=== PATIENT | female | born 1985 | race Two or more races ===

== ENCOUNTER 2017-09-15 20:59 | Emergency (ER) | payer OTHER ==
[~2017-09-15] VITALS: Ht 152.4 cm; Wt 62.6 kg
[~2017-09-15 20:59] MED LIST: FIORICET 50-301 EACH PO; KETO10TA2 PO; METRONIDAZOLE500 MG PO; ORPH100T PO
[2017-09-15] MEDS ORDERED: VASOTEC10 MG (21:43)
== END 2017-09-15 23:11 | disposition home or self-care (01) ==
LOC: ER 20:59
DX: G44.209 Tension-type headache, unspecified, not intractable (principal)

== ENCOUNTER 2018-08-07 15:31 | Emergency (ER) | payer OTHER ==
[~2018-08-07] VITALS: Ht 152.4 cm; Wt 68.0 kg
[~2018-08-07 15:31] MED LIST changes: +VASOTEC10 MG
== END 2018-08-07 19:39 | disposition home or self-care (01) ==
LOC: ER 15:31
DX: R42 Dizziness and giddiness (principal)

== ENCOUNTER 2019-06-07 22:09 | Emergency (ER) | payer OTHER ==
[~2019-06-07] VITALS: Ht 152.4 cm; Wt 71.7 kg
[2019-06-07] MEDS ORDERED: COZAAR25 MG (22:24)
[2019-06-07] MEDS ORDERED: DOLOGEN CAPLET1 EACH PO (23:45)
[2019-06-07] MEDS ORDERED: OSEL75CA PO (23:45)
[2019-06-07] MEDS ORDERED: TUSNEL LIQUID178 ML PO (23:45)
== END 2019-06-07 23:58 | disposition home or self-care (01) ==
LOC: ER 22:09
DX: J11.1 Influenza due to unidentified influenza virus with other respiratory manifestations (principal)

== ENCOUNTER 2019-12-06 00:38 | Emergency (ER) | payer OTHER ==
[~2019-12-06] VITALS: Ht 152.4 cm; Wt 72.6 kg
[~2019-12-06 00:38] MED LIST changes: +COZAAR25 MG; +DOLOGEN CAPLET1 EACH PO; +OSEL75CA PO; +TUSNEL LIQUID178 ML PO
[2019-12-06] MEDS ORDERED: NORFLEX100MG PO (03:04)
[2019-12-06] MEDS ORDERED: KETO10TA2 PO (03:04)
== END 2019-12-06 03:07 | disposition home or self-care (01) ==
LOC: ER 00:38
DX: M62.838 Other muscle spasm (principal)

== ENCOUNTER 2020-02-03 13:26 | Emergency (ER) | payer OTHER ==
[~2020-02-03] VITALS: Ht 152.4 cm; Wt 71.7 kg
[~2020-02-03 13:26] MED LIST changes: +NORFLEX100MG PO
[2020-02-03] MEDS ORDERED: ORPHENADRINE C100 MG PO (19:14)
[2020-02-03] MEDS ORDERED: KETO10TA2 PO (19:14)
== END 2020-02-03 19:45 | disposition home or self-care (01) ==
LOC: ER 13:26
DX: M62.830 Muscle spasm of back (principal); R07.89 Other chest pain

== ENCOUNTER → 2020-05-05 | Emergency (ER) | payer OTHER ==
[~2020-05-05] MED LIST changes: +ORPHENADRINE C100 MG PO
== END | disposition left against medical advice (07) ==
LOC: ER 22:05
DX: Z48.02 Encounter for removal of sutures (principal)

== ENCOUNTER 2020-06-17 15:55 | Emergency (ER) | payer OTHER ==
[~2020-06-17] VITALS: Ht 152.4 cm; Wt 75.3 kg
[2020-06-17] MEDS ORDERED: LABETALOL HCL100 MG PO (16:41)
[2020-06-17] MEDS ORDERED: PROFERRIN-FORT1 EACH PO (21:30)
[2020-06-17] MEDS ORDERED: ACETAMINOPHEN650 M2 PO (21:30)
== END 2020-06-17 21:44 | disposition home or self-care (01) ==
LOC: ER 15:55
DX: O99.012 Anemia complicating pregnancy, second trimester (principal); D50.8 Other iron deficiency anemias; O98.512 Other viral diseases complicating pregnancy, second trimester; B34.9 Viral infection, unspecified; O23.42 Unspecified infection of urinary tract in pregnancy, second trimester; Z03.818 Encounter for observation for suspected exposure to other biological agents ruled out; Z34.02 Encounter for supervision of normal first pregnancy, second trimester

== ENCOUNTER 2020-06-20 08:17 | Emergency (ER) | payer OTHER ==
[~2020-06-20] VITALS: Ht 152.4 cm; Wt 75.3 kg
[~2020-06-20 08:17] MED LIST changes: +ACETAMINOPHEN650 M2 PO; +LABETALOL HCL100 MG PO; +PROFERRIN-FORT1 EACH PO
== END 2020-06-20 18:36 | disposition home or self-care (01) ==
LOC: ER 08:17
DX: O16.2 Unspecified maternal hypertension, second trimester (principal); O98.512 Other viral diseases complicating pregnancy, second trimester; B34.9 Viral infection, unspecified; Z3A.16 16 weeks gestation of pregnancy; O99.012 Anemia complicating pregnancy, second trimester; D64.89 Other specified anemias; B96.0 Mycoplasma pneumoniae [M. pneumoniae] as the cause of diseases classified elsewhere

== ENCOUNTER → 2020-07-08 | Outpatient (CLI) | payer OTHER | END | disposition home or self-care (01) | LOC: PRENATAL 16:00 | PROVIDERS: ATTEND Obstetrics & Gynecology Maternal & Fetal Medicine | DX: O35.0XX1 Maternal care for (suspected) central nervous system malformation in fetus, fetus 1 (principal); O35.3XX1 Maternal care for (suspected) damage to fetus from viral disease in mother, fetus 1; O98.512 Other viral diseases complicating pregnancy, second trimester; O28.1 Abnormal biochemical finding on antenatal screening of mother; O09.512 Supervision of elderly primigravida, second trimester; O10.012 Pre-existing essential hypertension complicating pregnancy, second trimester; O34.12 Maternal care for benign tumor of corpus uteri, second trimester; Z36.89 Encounter for other specified antenatal screening; Z3A.19 19 weeks gestation of pregnancy ==

== ENCOUNTER 2020-07-16 13:08 | Inpatient (IN) | payer OTHER ==
[~2020-07-16] VITALS: Ht 152.4 cm; Wt 74.8 kg
--- NOTE | 2020-07-16 13:20 | NUR ---
SE RECIBE PACIENTE ALERTA Y ORIENTADA X3 CON 20 SEMANAS DE EMBARAZO. REFIERE TENER DOLOR ABDOMINAL QUE IRRADIA A CADERA IZQUIERDA. SE REALIZA IBAN DE VITALES Y SE COLOCA PACIENTE EN AREA DE OBSERVACION.
--- NOTE | 2020-07-16 13:51 | NUR ---
PACIENTE ALERTA Y ORIENTADO EN ISRA LESLIE ESFERAS. SE ORIENTA A PACIENTE SOBRE PROCEDIMIENTO Y TX, REFIERE ENTENDER. SEE EXTRAE MUESRTRAS DE LABORATORIO CON MEDIDAS ASEPTICAS Y SE ENVIA A LABORATORIO. PACIENTE SUBE A SCOTT DE PARTOS POR ORDEN DE DR. LIEBERMAN.
--- NOTE | 2020-07-17 00:31 | NUR ---
PACIENTE ALERTA Y ORIENTADA EN ISRA LESLIE ESFERAS, PRESENTA BUEN PATRON RESPIRATORIO Y ELODIA DE DOLOR. PACIENTE RECIBIENDO 0.9% NSS A 200 ML/HR, VENOPUNCION PATENTE Y ELODIA DE S/S DE FLEBITIS E INFILTRACION. PACIENTE PERMANECERA "OVERNIGHT".
--- NOTE | 2020-07-17 01:17 | NUR ---
SE REALIZA MUESTRAS DE KAYODE POR ORDEN MEDICA. SE KENYATTA BAJO MEDIDAS ASEPTICAS.
--- NOTE | 2020-07-17 07:31 | NUR ---
SE RECIBE PACIENTE FEMENINA ALERTA Y ORIENTADA SE BARANDAS ELEVADAS. AREA DE VENOPUNCION EN ANTEBRAZO AMAURY PATENTE Y ELODIA EDEMA Y ENROJECIMIENTO. PENDIENTE A MRI DE ABDOMEN Y CONSULTA CON DR. SINGER Y NOTIFICADA. SE LE SYLVIE EN TODO MOMENTO SEGURIDAD Y PRIVACIDAD.
--- NOTE | 2020-07-17 08:03 | NUR ---
RN. Iman ROSALES REALIZA IBAN DE MUESTRAS DE KAYODE Y ADMINISTRA MEDICAMENTOS [facility] ORDEN MEDICA.
== END 2020-07-22 12:47 | disposition home or self-care (01) | DRG 833 ==
LOC: ER 13:08 → OB/GYN 07-17 09:32 → SEC-K 07-17 09:32 → OB/GYN 07-17 15:37
PROVIDERS: ADMIT Obstetrics & Gynecology; ATTEND Obstetrics & Gynecology
PROC: BT4JZZZ Ultrasonography of Kidneys and Bladder (ICD-10-PCS; 2020-07-16)
PROC: 4A1HXFZ Monitoring of Products of Conception, Cardiac Rhythm, External Approach (ICD-10-PCS; principal; 2020-07-17)
PROC: BW30ZZZ Magnetic Resonance Imaging (MRI) of Abdomen (ICD-10-PCS; 2020-07-17)
PROC: BW3GZZZ Magnetic Resonance Imaging (MRI) of Pelvic Region (ICD-10-PCS; 2020-07-17)
DX: O23.02 Infections of kidney in pregnancy, second trimester (principal); N20.0 Calculus of kidney; B96.20 Unspecified Escherichia coli [E. coli] as the cause of diseases classified elsewhere; Z3A.23 23 weeks gestation of pregnancy; Z20.822 Contact with and (suspected) exposure to COVID-19
CPT/HCPCS: 74181

== ENCOUNTER 2020-09-07 00:05 | Inpatient (IN) | payer OTHER ==
[~2020-09-07] VITALS: Ht 152.4 cm; Wt 0.9 kg
[2020-10-01] MEDS ORDERED: ORPHENADRINE C100 MG PO (16:34)
[2020-10-01] MEDS ORDERED: DICLOFENAC SODI75 MG PO (16:34)
== END 2020-09-13 13:42 | disposition home or self-care (01) | DRG 785 ==
LOC: OBS/DEL 00:05 → OB/GYN 10:14 → LDR 10:14 → O/R 09-08 09:49 → OB/GYN 09-08 11:56
PROVIDERS: ADMIT Obstetrics & Gynecology; ATTEND Obstetrics & Gynecology
PROC: 4A1HXFZ Monitoring of Products of Conception, Cardiac Rhythm, External Approach (ICD-10-PCS; 2020-09-07)
PROC: BY4CZZZ Ultrasonography of Second Trimester, Single Fetus (ICD-10-PCS; 2020-09-07)
PROC: 10D00Z1 Extraction of Products of Conception, Low, Open Approach (ICD-10-PCS; principal; 2020-09-09)
PROC: 0UB70ZZ Excision of Bilateral Fallopian Tubes, Open Approach (ICD-10-PCS; 2020-09-09)
PROC: 0UB90ZZ Excision of Uterus, Open Approach (ICD-10-PCS; 2020-09-09)
DX: O11.2 Pre-existing hypertension with pre-eclampsia, second trimester (principal); O10.012 Pre-existing essential hypertension complicating pregnancy, second trimester; O34.211 Maternal care for low transverse scar from previous cesarean delivery; O34.12 Maternal care for benign tumor of corpus uteri, second trimester; D25.9 Leiomyoma of uterus, unspecified; O99.012 Anemia complicating pregnancy, second trimester; D64.9 Anemia, unspecified; Z30.2 Encounter for sterilization; Z3A.27 27 weeks gestation of pregnancy; Z37.0 Single live birth; Z20.822 Contact with and (suspected) exposure to COVID-19

== ENCOUNTER → 2020-10-01 | Emergency (ER) | payer OTHER ==
[~2020-10-01] VITALS: Ht 152.4 cm; Wt 72.6 kg
[~2020-10-01] MED LIST changes: +DICLOFENAC SODI75 MG PO
== END | disposition home or self-care (01) ==
LOC: ER 13:51
DX: M54.12 Radiculopathy, cervical region (principal); M62.838 Other muscle spasm

== ENCOUNTER → 2021-05-10 | Emergency (ER) | payer OTHER ==
[~2021-05-10] VITALS: Ht 152.4 cm; Wt 77.1 kg
[~2021-05-10] MED LIST changes: +IPRAT-ALBUT 0.5-3 ML IH
== END | disposition home or self-care (01) ==
LOC: ER 18:18
DX: J40 Bronchitis, not specified as acute or chronic (principal); B34.9 Viral infection, unspecified; Z20.822 Contact with and (suspected) exposure to COVID-19

== ENCOUNTER 2021-07-28 16:09 | Emergency (ER) | payer OTHER ==
[~2021-07-28] VITALS: Ht 152.4 cm; Wt 77.1 kg
== END 2021-07-28 20:23 | disposition home or self-care (01) ==
LOC: ER 16:09
DX: R20.0 Anesthesia of skin (principal); I10 Essential (primary) hypertension

== ENCOUNTER 2023-06-27 05:30 | Day surgery (SDC) | payer OTHER ==
[2023-06-21 08:38] LABS: PH,URINE 5.5 (5.0-8.0); URINE APPEARANCE Cloudy; URINE BILIRRUBIN Negative (NEGATIVE); URINE BLOOD Trace; URINE COLOR Yellow; URINE GLUCOSE Negative (NEGATIVE); URINE LEUKOCYTE Negative; URINE NITRATE Negative; URINE PROTEIN Negative (NEGATIVE); URINE UROBILINOGEN 0.2 E.U./dl
[2023-06-21 08:39] LABS: URINE BACTERIA 1116.2 uL (0.0-1933); URINE RBC 11.9 uL (0.0-20.8); URINE WBC 34.9 uL (0.0-23.2)
[2023-06-21 08:44] LABS: HEMATOCRIT 33.3 % (36.0-45.00); MEAN CELL VOLUME 78.8 fL (80.00-100.00); MEAN CORPUSCULAR HGB CONC 31.9 g/dl (32.0-36.0); PLATELET COUNT 336 K/uL (150-450); RED BLOOD COUNT 4.23 M/uL (4.00-6.00); RED CELL DISTRIBUTION WIDTH 15.2 % (11.5-14.5)
[2023-06-21 08:46] LABS: HEMOGLOBIN 10.6 g/dL (12.0-15.00)
[2023-06-21 08:55] LABS: URINE EPITHELIAL CELLS > 201.7 uL (0.0-38.8)
[2023-06-21 09:15] LABS: INR 0.99; PARTIAL THROMBOPLASTIN TIME 27.5 SECONDS (22.0-34.0); PROTHROMBIN TIME 10.4 SECONDS (9.0-11.5)
[2023-06-21 09:29] LABS: ALBUMIN 3.7 gm/dL (3.4-5.0); BILIRUBIN TOTAL 0.32 mg/dL (0.3-1.2); CALCIUM 9.4 mg/dL (8.5-10.1); CREATININE SERUM 0.74 mg/dL (0.55-1.02); GFR 87.37; GLOBULINA 3.1 G/DL (2.4-3.5); POTASSIUM 4.48 mEq/L (3.5-5.1); TOTAL PROTEIN 6.8 gm/dL (6.4-8.2)
[~2023-06-27 05:30] MED LIST changes: +LOSARTAN 25 MG
== END 2023-06-27 13:40 | disposition home or self-care (01) ==
LOC: CIR.AMB 05:30
PROVIDERS: ATTEND Specialist
DX: K42.9 Umbilical hernia without obstruction or gangrene (principal); I10 Essential (primary) hypertension; Z20.822 Contact with and (suspected) exposure to COVID-19